=== PATIENT | female | born 1960 | race Caucasian/White ===

== ENCOUNTER 2022-10-05 11:00 | Observation (INO) | payer MEDICARE, SELFPAY ==
[2022-10-05 11:41] VITALS: BP 128/69; PULSE 80; RESP 16; TEMP 36.5; O2SAT 95; BMI 29.9
[2022-10-05 12:18] LABS: Influenza A QL RT-PCR Negative (Negative); Influenza B QL RT-PCR Negative (Negative); SARS-CoV-2 RNA PCR Negative
[2022-10-05 14:22] VITALS: BP 133/81; PULSE 82; RESP 12; TEMP 36.5; O2SAT 97
--- NOTE | 2022-10-05 14:41 | PC.NURSE ---
Dr Collins here speaking with pt and family
--- NOTE | 2022-10-05 14:50 | PC.NURSE ---
Report called to [facility] nurse ed surg
--- NOTE | 2022-10-05 14:55 | PC.NURSE ---
Pt transferred to [facility]/surg
[2022-10-05] MEDS: BISACODYL 5 MG TABLET EC 10 MG PO (15:05)
--- NOTE | 2022-10-05 15:05 | PM.IMHP ---
H&P: HPI History of Present Illness Date/Time: 10/05/22 15:05 Chief Complaint: + Cologuard test Narrative: This is a 62-year-old woman who presents for colonoscopy for positive Cologuard test. She has a prior history colonoscopy in 2010 and a polyp with high-grade dysplasia was removed at that time. She had a normal Cologuard test 4 years ago but this was repeated recently by her PCP and it is now positive. She has not noticed any blood in her stool and denies any change in bowel habits. She has a history of CVA with right hemiplegia and aphasia. Most of her history is obtained from her who is at the bedside and from the chart from her PCP. Review of Systems Review of Systems: All systems reviewed & are unremarkable except as noted in HPI and below Constitutional: Constitutional: Denies chills and Denies fever(s) Cardiovascular: Cardiovascular: Denies chest pain and Denies dyspnea Respiratory: Respiratory: Denies dyspnea Gastrointestinal: Gastrointestinal: Reports as per HPI [facility] Past Medical History Medical History (Updated 10/05/22 @ 15:13 by Chaparro Collins DO) COPD (chronic obstructive pulmonary disease) History of CVA (cerebrovascular accident) History of gastrostomy tube placement HTN (hypertension), benign Hx of colonic polyps Hyperlipidemia Surgical History Surgical History (Updated 10/05/22 @ 15:11 by Chaparro Collins DO) History of tonsillectomy Hx of hysterectomy Family History Family History (Updated 10/05/22 @ 12:06 by Susan Hood RN) Father Cerebrovascular accident Diabetes mellitus Hypertension Mother Family history of malignant neoplasm Other Family history of allergic disorder Social History Social History (Updated 10/05/22 @ 12:06 by Susan Hood RN) Smoking packs per day: 2 Smoking cigarettes per day: 40.0 Years smoked: 55 Smoking pack-years: 110.00 Smoking status: Former smoker Tobacco type: cigarettes Smoking end date: 01/07/15 Alcohol intake: former Substance use: never Lack of Transportation: No Lack of Food: Never True Current Housing: I Have Housing Concerned About Future Housing: No Difficulty Paying Gas/Electric Bills: No Difficulty Paying for Meds: No Currently Unemployed: No Education: High School Diploma/GED Difficulty w/ Childcare or Family Care: No Living arrangements: with family Spiritual care concerns: No Meds Home Medications and Allergies Home Medications Medication Instructions Recorded Confirmed Type amlodipine 2.5 mg tablet 2.5 mg PO DAILY 10/05/22 10/05/22 History glimepiride 4 mg tablet 4 mg PO BID 10/05/22 10/05/22 History metformin 500 mg tablet,extended 500 mg PO BID 10/05/22 10/05/22 History release 24 hr pioglitazone 45 mg tablet 45 mg PO HS 10/05/22 10/05/22 History pravastatin 20 mg tablet 20 mg PO HS 10/05/22 10/05/22 History rivaroxaban 2.5 mg tablet (Xarelto) 2.5 mg PO HS 10/05/22 10/05/22 History Allergies Allergy/AdvReac Type Severity Reaction Status Date / Time No Known Allergies Allergy Mild Unverified 12/08/04 12:50 heparin Allergy Unknown Verified 05/19/16 10:13 morphine Allergy Unknown Verified 05/19/16 10:12 Vital Signs Vital Signs - 24 hr 10/05/22 11:41 10/05/22 14:22 Temperature 36.5 C 36.5 C Pulse Rate 80 82 Respiratory Rate 16 12 Blood Pressure 128/69 133/81 Pulse Oximetry 95 97 Exam Const: General: cooperative, no acute distress and average body habitus Nutritional Appearance: average body habitus Orientation/consciousness: oriented to person and oriented to place Limitations: language barrier and physical limitations HENMT: Head: normal to inspection Ears: hearing grossly normal bilaterally Mouth: Yes Normal oral and palatal mucosa present Eyes: General: appearance normal, both eyes and all related structures Sclera: sclerae normal EOM: EOMs intact bilaterally Neck: Neck: normal visual inspection and ful
[2022-10-05 15:10] VITALS: BP 128/79; PULSE 72; RESP 16; TEMP 36.4; O2SAT 97
[2022-10-05] MEDS: SODIUM CHLORIDE 0.9% IV 1,000 ML 80 ML IV CONT (15:27)
[2022-10-05] MEDS: polyethylene glycoL 3350 238 GM BOTTLE PO (15:28)
[2022-10-05 17:00] LABS: Glucose Point of Care 267 mg/dl (65-105)
[2022-10-05] MEDS: metFORMIN HCL XR 500 MG TAB.SR.24H PO (17:58)
[2022-10-05] MEDS: PIOGLITAZONE HCL 45 MG TABLET PO (21:09)
[2022-10-05] MEDS: PRAVASTATIN SODIUM 20 MG TABLET PO (21:09)
[2022-10-05 21:42] VITALS: BP 138/73; PULSE 70; RESP 18; TEMP 36.4; O2SAT 99
[2022-10-06 05:14] VITALS: BP 125/72; PULSE 73; RESP 20; TEMP 37.1; O2SAT 99
[2022-10-06] MEDS: LACTATED RINGERS 1,000 ML 150 ML IV CONT (07:54)
[2022-10-06 07:58] VITALS: BP 143/92; PULSE 87; RESP 18; TEMP 36.5; O2SAT 99
--- NOTE | 2022-10-06 08:04 | WPDANESEPPF ---
Anes - Initial Pre Proc Eval Procedure: Operation Date: 10/06/22 09:00 Proposed Procedures p Colonoscopy - Chaparro Collins DO Date/Time: 10/06/22 08:04 Surgeon: Chaparro Collins DO Pre Op Diagnosis: Positive Cologuard Patient Data Age: 62 Gender: F Height: 1.65 m Weight: 81.8 kg Last Vital Signs Temp 36.5 C 10/06/22 07:58 Pulse 87 10/06/22 07:58 Resp 18 10/06/22 07:58 BP 143/92 H 10/06/22 07:58 Pulse Ox 99 10/06/22 07:58 O2 Del Method Room Air 10/06/22 07:58 Allergies Allergy/AdvReac Type Severity Reaction Status Date / Time heparin Allergy Unknown Unknown Verified 10/06/22 07:56 morphine Allergy Unknown Rash Verified 10/06/22 07:56 Home Medications Medication Instructions Recorded Confirmed Type amlodipine 2.5 mg tablet 2.5 mg PO DAILY 10/05/22 10/05/22 History glimepiride 4 mg tablet 4 mg PO BID 10/05/22 10/05/22 History metformin 500 mg tablet,extended 500 mg PO BID 10/05/22 10/05/22 History release 24 hr pioglitazone 45 mg tablet 45 mg PO HS 10/05/22 10/05/22 History pravastatin 20 mg tablet 20 mg PO HS 10/05/22 10/05/22 History rivaroxaban 2.5 mg tablet (Xarelto) 2.5 mg PO HS 10/05/22 10/05/22 History Laboratory Tests 10/05/22 10/05/22 11:30 16:34 POC Capillary Glucose 267 mg/dl H mg/dl (65-105) Influenza A (RT-PCR) Negative (Negative) Influenza B (RT-PCR) Negative (Negative) SARS-CoV-2 RNA (RT-PCR) Negative Patient hx anesthesia problems: none Family hx anesthesia problems: none Results Review: All pre-operative results and documents have been reviewed as part of the pre-operative evaluation. [facility] Past Medical History Medical History COPD (chronic obstructive pulmonary disease) History of CVA (cerebrovascular accident) History of gastrostomy tube placement HTN (hypertension), benign Hx of colonic polyps Hyperlipidemia Surgical History Surgical History History of tonsillectomy Hx of hysterectomy Family History Family History Father Cerebrovascular accident Diabetes mellitus Hypertension Mother Family history of malignant neoplasm Other Family history of allergic disorder Social History Social History Smoking packs per day: 2 Smoking cigarettes per day: 40.0 Years smoked: 55 Smoking pack-years: 110.00 Smoking status: Former smoker Tobacco type: cigarettes Smoking end date: 01/07/15 Alcohol intake: former Substance use: never Lack of Transportation: No Lack of Food: Never True Current Housing: I Have Housing Concerned About Future Housing: No Difficulty Paying Gas/Electric Bills: No Difficulty Paying for Meds: No Currently Unemployed: No Education: High School Diploma/GED Difficulty w/ Childcare or Family Care: No Living arrangements: with family Spiritual care concerns: No Anes - Eval Final PreProcedure Day of Procedure 10/06/22 08:04 Patient weight: obese Heart: regular rate and rhythm Lungs: decreased breath sounds Neurological: other (alert) Last oral intake: >/= 8 hours ASA classification: IV Emergent: no Anesthetic plan: proceed Anesthesia type and monitoring: general GIVS and standard monitoring Results Review: All pre-operative results and documents have been reviewed as part of the pre-operative evaluation. Informed Consent: The patient's anesthetic plan and its attendant risks and benefits were discussed with the patient/family/POA. Questions were solicited and answers provided to the satisfaction of the patient/family/POA.
[2022-10-06 08:06] LABS: Glucose Point of Care 125 mg/dl (65-105)
--- NOTE | 2022-10-06 08:24 | WPDHPUPDATE1 ---
History and Physical Update Update Date/Time: 10/06/22 08:24 History and Physical has been reviewed, including an updated exam of the patient. There are NO changes in the patient's condition. Risks, benefits, and alternatives have been discussed and questions answered. Patient agrees to proceed with procedure.
[2022-10-06 09:05] VITALS: BP 137/73; PULSE 90; RESP 24; O2SAT 99
[2022-10-06 09:15] VITALS: BP 142/94; PULSE 83; RESP 23; O2SAT 99
[2022-10-06 09:25] VITALS: BP 148/68; PULSE 79; RESP 25; O2SAT 100
[2022-10-06] MEDS: metFORMIN HCL XR 500 MG TAB.SR.24H PO (09:57)
[2022-10-06] MEDS: amLODIPine BESYLATE 2.5 MG TABLET PO (09:57)
[2022-10-06 10:10] VITALS: BP 130/79; PULSE 73; RESP 16; TEMP 36.6; O2SAT 100
--- NOTE | 2022-10-06 10:34 | PM.DS ---
DS: Admitting Diagnosis Discharge Date 10/06/22 Admitting Diagnosis Positive Cologuard, hx of CVA, right hemiplegia DS: Discharge Diagnosis Discharge Diagnosis (1) Colon polyps: Code(s): K63.5 - Polyp of colon Status: Acute (2) Positive colorectal cancer screening using Cologuard test: Code(s): R19.5 - Other fecal abnormalities Status: Acute (3) History of CVA (cerebrovascular accident): Code(s): Z86.73 - Personal history of transient ischemic attack (TIA), and cerebral infarction without residual deficits Status: Acute (4) Right hemiplegia: Code(s): G81.91 - Hemiplegia, unspecified affecting right dominant side Status: Acute (5) Aphasia: Code(s): R47.01 - Aphasia Status: Acute DS: Summary Hospital Course Reason for hospitalization: Positive cologuard test, right hemiplegia, aphasia Hospital Course: This is a 62-year-old woman who presented with a recent positive Cologuard test. She has a history of CVA with right-sided hemiplegia. She also has aphasia. She is still living at home with her , but is limited with mobility and is dependent on him for most of her care. She was unable to perform a bowel prep at home, therefore she was brought into the hospital on 10/05/2022 to begin her medically administered bowel prep. She was on clear liquids and tolerated the bowel prep. She underwent colonoscopy on 10/06/2022. Two polyps were removed. No other masses or abnormalities were noted. She was then returned to the surgical floor and her diet was advanced. She was then discharged on 10/06/2022. Status at Discharge Functional status at discharge: wheelchair bound Overall status at discharge: patient is back to baseline Time Spent with Patient Time attestation: Total time spent providing and/or coordinating discharge services: Time spent: Less than 30 minutes Exam Const: General: comfortable and no acute distress Orientation/consciousness: oriented to person and oriented to place Limitations: language barrier and physical limitations Resp: Effort & Inspection: normal respiratory effort Auscultation: clear to auscultation bilaterally Cardio: Rate: regular rate Rhythm: regular rhythm GI: Inspection: non-distended GI Palp: Yes Soft to palpation, No Tenderness to palpation present (GI) and No Guarding due to palpation present (GI) DS: Data Data Completed and Pending Pending studies at discharge: Pending at discharge 10/06/22 09:00 Surgical [PTH] Routine Labs on day of discharge: Labs from last 24 hours 10/06/22 10/05/22 10/05/22 08:04 16:34 11:30 POC Capillary Glucose 125 H 267 H Influenza A (RT-PCR) Negative Influenza B (RT-PCR) Negative SARS-CoV-2 RNA (RT-PCR) Negative Discharge Plan Discharge Attending physician on discharge: Chaparro Collins Discharging Clinician: Chaparro Collins Patient Disposition: Home, Self-Care Activity: unlimited Diet: regular and heart healthy Patient Instructions: Antibiotic Form, Rivaroxaban (By mouth) Stand Alone Forms: General Discharge Information Follow-up/Referrals: Taylor Murcia MD [Primary Care Provider] - Follow Up with Primary Dr Discharge Medications: Continued pioglitazone 45 mg tablet 45 mg PO HS amlodipine 2.5 mg tablet 2.5 mg PO DAILY glimepiride 4 mg tablet 4 mg PO BID pravastatin 20 mg tablet 20 mg PO HS metformin 500 mg tablet extended release 24 hr 500 mg PO BID Held Xarelto 2.5 mg Tablet 2.5 mg PO HS Hold Instructions: Resume on 10/08/22. OK to resume Xarelto on Monday. Date of admission: 10/05/22 11:00 Primary Care Provider: Taylor Murcia Admitting Provider: Chaparro Collins Attending physician on admission: Chaparro Collins Condition: Stable
== END 2022-10-06 11:40 | disposition home or self-care (01) ==
LOC: ANHCPC 11:19 → ANH3MEDSUR 14:53
PROVIDERS: Admitting Provider Surgery; PCP Internal Medicine; Visit Provider Surgery
PROC: 0DJD8ZZ Inspection of Lower Intestinal Tract, Via Natural or Artificial Opening Endoscopic (ICD-10-PCS; CPT 45378; principal; 2022-10-06 09:00)
DX: D12.3 Benign neoplasm of transverse colon (principal); R19.5 Other fecal abnormalities; I69.320 Aphasia following cerebral infarction; I69.351 Hemiplegia and hemiparesis following cerebral infarction affecting right dominant side; I10 Essential (primary) hypertension; J44.9 Chronic obstructive pulmonary disease, unspecified; E78.5 Hyperlipidemia, unspecified; Z20.822 Contact with and (suspected) exposure to COVID-19; Z86.010 Personal history of colon polyps; Z87.891 Personal history of nicotine dependence; Z79.84 Long term (current) use of oral hypoglycemic drugs; Z79.01 Long term (current) use of anticoagulants; Z79.899 Other long term (current) drug therapy
CPT/HCPCS: 45385; 82948; 87636; 88305; A9270; G0378; G0379; J2704; J7030; J7120

== ENCOUNTER 2025-03-21 12:00 | Outpatient (CLI) | payer MEDICARE, SELFPAY ==
--- NOTE | ~2025-03-21 | CT_ITS ---
CT of the Abdomen and Pelvis: Indication: Hematuria Technique: 2.5 mm axial scans were obtained through the abdomen and pelvis prior to and following in travenous administration of 130 cc of Omnipaque 350. Dose reduction technique was used on this scan b y utilizing automated exposure control and iterative reconstruction technique. The dose-length produc t (DLP) was 2283.15 mGy-cm. Findings: Scans through the lung bases are unremarkable. Small pericardial effusion noted. Probable mildly nodular contour of liver. The spleen, pancreas, adrenals and kidneys are within maria t l limits. Gallbladder is distended, multiple small layering gallstones, but no gallbladder wall thick ening or inflammatory change. No evidence of aortic aneurysm. No lymphadenopathy. No bowel obstruction or bowel wall thickening. There is no evidence to suggest acute appendicitis. Images through the pelvis were performed. Status post hysterectomy. Urinary bladder unremarkable. The re is a 9.2 x 5.6 x 11.5 cm cystic mass in the right lower quadrant, with multiple thin enhancing sep tations seen on postcontrast images. Impression: 9.2 x 5.6 x 11.5 cm complex cystic mass in the right lower quadrant with multiple thin internal septa tions. Precise etiology is unclear. The lesion appears to abut, and possibly arise from, the appendix , though other origins for the lesion remain possible as well. Cystic or mucinous neoplastic lesion m ust be suspected. Surgical consultation advised. No distinct etiology for hematuria identified. Cholelithiasis. Possible early cirrhotic change. Reviewed, dictated and finalized at [facility]. Impression: 9.2 x 5.6 x 11.5 cm complex cystic mass in the right lower quadrant with multip le thin internal septations. Precise etiology is unclear. The lesion appears to abut, and possibly arise from, the appendix, though other origins for the lesi on remain possible as well. Cystic or mucinous neoplastic lesion must be suspec cheikh. Surgical consultation advised. No distinct etiology for hematuria identified. Cholelithiasis. Possible early cirrhotic change.
--- OUTSIDE RECORDS SUMMARY | 2025-03-21 12:06 | XMS_ITS | Clinical Summary ---
Author Organization [facility] Address [address] [place] [address] Care Team Providers Care Manager Branch Name Role Phone Taylor Murcia MD Primary Care Provider [phone] Source Comments [facility],non-[facility] Affiliates and Associated Physician Practices is amultiple site organization consisting of ambulatory clinics and hospital sitesin [place], [place], [place] and [place]. This disclosure is being madepursuant to the Care Everywhere program and may not contain all information available regarding this patient. Last updated 18.[facility] Social History Tobacco Use Types Packs/Day Years Used Date Smoking Tobacco: Never Assessed Comments Unknown Sex and Gender Information Value Date Recorded Sex Assigned at Not on file Legal Sex Female 6:18 AM HEALTH AND SAFETY INSTRUCTOR Gender Identity Not on file Sexual Orientation Not on file Last Filed Vital Signs Vital Sign Reading Time Taken Comments Blood Pressure 150/97 10/12/2015 9:38 AM HEALTH AND SAFETY INSTRUCTOR Pulse 105 10/12/2015 9:38 AM HEALTH AND SAFETY INSTRUCTOR Temperature 36.6 C (97.9 F) 10/12/2015 9:38 AM HEALTH AND SAFETY INSTRUCTOR Respiratory Rate 14 09/03/2015 12:30 PM CDT Oxygen Saturation 97% 10/12/2015 9:38 AM HEALTH AND SAFETY INSTRUCTOR Inhaled Oxygen Concentration - - Weight 68 kg (150 lb) 10/12/2015 9:38 AM HEALTH AND SAFETY INSTRUCTOR Height 165.1 cm (5' 5 ) 10/12/2015 9:38 AM HEALTH AND SAFETY INSTRUCTOR Body Mass Index 24.96 10/12/2015 9:38 AM HEALTH AND SAFETY INSTRUCTOR Plan of Treatment Health Maintenance Due Date Last Done Comments ANOOP (AGES 45-75) - COL ON CA SCREENING 1960 COLON MONITORING 1960 COLONOSCOPY - COLON CA SCREENING 1960 CT COLONOGRAPHY - COLON CA SCREENING 1960 Colorectal Cancer Screening 1960 FIT - COLON CA SCREENING 1960 FLEX SIG - COLON CA SCREENING 1960 MAMMOGRAM 1960 HIV SCREENING 1975 HEPATITIS C SCREENING 07/01/1978 DTAP/TDAP/TD VACCINES (1 - Tdap) 1979 PNEUMOCOCCAL VACCINE 50+ (1 of 1 - PCV) 2010 ZOSTER VACCINE (1 of 2) 2010 LIPID TESTING 01/09/2020 01/08/2015 COVID-19 VACCINE ( - 2023-2 5 season) 2024 DEPRESSION SCREENING 11/06/2024 INFLUENZA VACCINE (Season Ended) 2025 Respiratory Syncytial Virus (RSV) Vaccine Pt: or over 60 yrs (1 - 1-dose 75+ series) 2035 HEPATITIS B VACCINE Aged Out No longe r eligible based on patient's age to complete this topic HIB VACCINE Aged Out No longer eligi ble based on patient's age to complete this topic HPV VACCINE Aged Out No longer eligi ble based on patient's age to complete this topic MENINGOCOCCAL (Group B) VACC INE SHARED DECISION-MAKING Aged Out No longer eligibl e based on patient's age to complete this topic MENINGOCOCCAL GROUPS A/C/Y/W VACCINE Aged Out No longer eligible b ased on patient's age to complete this topic Procedures Procedure Name Priority Date/Time Associated Diagnosis Comments LIPID PROFILE Routine 01/08/2015 1:53 AM HEALTH AND SAFETY INSTRUCTOR from Last 3 Months or Most Recently Relevant to Health Maintenance Results * (ABNORMAL) LIPID PROFILE (01/08/2015 1:53 AM HEALTH AND SAFETY INSTRUCTOR) Cholesterol Total 244(H) <200 mg/dL [facility] HDL 45 >40 mg/dL [facility] Comment: ATP III Classification of HDL Cholesterol: <40 mg/dL: Considered a major risk factor. >60 mg/dL: Considered a negative risk factor. LDL Calculated 141(H) <100 mg/dL [facility] Comment: ATP III Classification of LDL Cholesterol: <100 mg/dL: Optimal 100 - 129 mg/dL: Near Optimal/Above Optimal 130 - 159 mg/dL: Borderline High 160 - 189 mg/dL: High >190 mg/dL: Very High Triglycerides 289(H) <150 mg/dL [facility] Comment: ATP III Classification of Triglycerides: <150 mg/dL: Normal 150 - 199 mg/dL: Borderline High 200 - 400 mg/dL: High >500 mg/dL: Very High Blood specimen (specimen) BLOOD SPECIMEN / Unknown 01/08/2015 1:53 AM HEALTH AND SAFETY INSTRUCTOR 01/08/2015 1:57 AM HEALTH AND SAFETY INSTRUCTOR us Jorge Marin MD LAB - CHEMISTRY ORDERABLES F inal Result [address] [phone] from Last 3 Months or Most Recently Relevant to Health Maintenance Advance Directives Documents on File Type Date Recorded Patient Electronics Production Supervisor Expl anation Advance Directives and Isaias mckeon Will 09/03/2015 12:00 AM Care Teams Manager Branch Relationship Specialty Start Date End Date Taylor Murcia MD [address] [place] [id number] PCP - General 10/07/22
--- OUTSIDE RECORDS SUMMARY | 2025-03-21 12:06 | XMS_ITS | Clinical Summary ---
Author Organization [facility] Address [address] [place] [id number] Care Team Providers Care Lion Hunter Name Role Phone Unavailable Primary Care Provider Unavailabl e Social History Tobacco Use Types Packs/Day Years Used Date Smoking Tobacco: Never Assessed Comments Unknown Sex and Gender Information Value Date Recorded Sex Assigned at Not on file Legal Sex Female 7:47 PM CDT Gender Identity Not on file Sexual Orientation Not on file Plan of Treatment Health Maintenance Due Date Last Done Comments Cervical Cancer Screening Pa p Smear (Age 30 to 64) Every 3 Years 1960 Colorectal Cancer Screening Colonoscopy (10 Years) 1960 Annual Physical 1963 Hepatitis C 1978 DTaP, Tdap and Td Vaccines ( 1 - Tdap) 1979 Cervical Cancer Screening Pa p with HPV Testing (Age 30 to 64) Every 5 Years 1990 Cervical Cancer Screening with HPV 1990 Mammogram Screening 2000 Pneumococcal Vaccine: 50+ Ye ars (1 of 1 - PCV) 2010 Zoster Vaccines (1 of 2) 2010 COVID-19 Vaccine ( - 2023-2 5 season) 2024 RSV Immunization or 60+ Years (1 - 1-dose 75+ series) 2035 Meningococcal B Vaccine Aged Out No l onger eligible based on patient's age to complete this topic Meningococcal Vaccine Aged Out No verenice julianne eligible based on patient's age to complete this topic RSV Immunizations Under 20 Months Aged Out No longer eligible based on patient's age to complete this topic
[2025-03-21 12:33] LABS: Estimated Glomerular Filt Rate > 60
== END 2025-03-21 12:01 | disposition home or self-care (01) ==
LOC: CHSIMG 12:02
PROVIDERS: PCP Internal Medicine; Visit Provider Internal Medicine
DX: R31.9 Hematuria, unspecified (principal); R19.03 Right lower quadrant abdominal swelling, mass and lump; K80.20 Calculus of gallbladder without cholecystitis without obstruction
CPT/HCPCS: 74178; Q9967

== ENCOUNTER 2025-08-28 13:17 | Outpatient (CLI) | payer MEDICARE, SELFPAY ==
--- NOTE | ~2025-08-28 | MR_ITS ---
EXAMINATION: MR pelvis wo/w con DATE: 08/28/2025 14:36 INDICATION: Other specified disease of appendix TECHNIQUE: Magnetic resonance imaging (MRI) of the pelvis was performed without and with 20 mL Multihance intravenous contrast. Sequences included axial, sagittal and coronal FS 2D-FIESTA and T2-weighted SS-FSE, axial STIR FSE, axial dual-echo T1-weighted FSPGR, and axial T1-weighted LAVA. Postcontrast sequences included a time course of axial T1-weighted LAVA. COMPARISON: CT dated 03/21/2025 FINDINGS: There is a 10.9 x 12.6 x 7.8 cm T2 hyperintense complex cystic lesion in the right lower quadrant with numerous thin (<2 mm) internal septations with discernible subtle enhancement along the carson of the cystic lesion and a few of the internal septations. No evident nodular enhancing soft tissue component. The lesion the normal-appearing appendix, the ascending colon and a few loops of small bowel without evident subserosal extension. No bowel obstruction or abnormal bowel wall thickening. Bladder is normal. The uterus and bilateral ovaries are not identified and have likely been surgically resected. No free fluid in the pelvis. No pathologically enlarged pelvic or lower abdominal lymphadenopathy. Mild lumbar levocurvature with mild spondylosis. Normal bone marrow signal throughout. IMPRESSION: 1. 10.9 x 12.6 x 7.8 cm complex cystic lesion in the right lower quadrant with numerous thin internal septations. Minimal enhancement along the carson of the few of the internal septations. Differential would include lymphocele potentially related to prior hysterectomy and bilateral salpingo-oophorectomy, peritoneal inclusion cyst and could not exclude localized pseudomyxoma peritonei although the appendix appears normal. Reviewed, dictated and finalized at location A. IMPRESSION: 1. 10.9 x 12.6 x 7.8 cm complex cystic lesion in the right lower quadrant with numerous thin internal septations. Minimal enhancement along the carson of the f ew of the internal septations. Differential would include lymphocele potentiall y related to prior hysterectomy and bilateral salpingo-oophorectomy, peritoneal inclusion cyst and could not exclude localized pseudomyxoma peritonei although the appendix appears normal.
== END 2025-08-28 13:18 | disposition home or self-care (01) ==
LOC: CHSIMG 13:18
PROVIDERS: PCP Internal Medicine; Visit Provider Surgery
DX: K38.8 Other specified diseases of appendix (principal); R93.5 Abnormal findings on diagnostic imaging of other abdominal regions, including retroperitoneum
CPT/HCPCS: 72197